=== PATIENT | male | born 1995 | race American Indian/Alaskan Native ===

== ENCOUNTER 2017-07-27 00:15 | Emergency (ER) | payer SELFPAY ==
[2017-07-27 00:45] VITALS: BP 118/60
[2017-07-27] MEDS ORDERED: MOTRIN PO ONE (03:48)
--- NOTE | 2017-07-27 03:57 | Emergency Department Report ---
- General Chief complaint: Skin Rash Stated complaint: BUMP ON GENITILES Time Seen by Provider: 07/27/17 03:48 Source: patient Mode of arrival: Ambulatory Limitations: No Limitations - History of Present Illness Initial comments: 22-year-old -[place] male comes to the emergency room complaining of a bump in his groin area. Patient reports he noticed a bump yesterday. He reports is very tender to touch. Fever chills no nausea vomiting. Denies any penile discharge or urinary discomfort. He's has no past medical history currently takes no medication and has no known drug allergies. MD complaint: abscess/boil -: days(s) (1) Tetanus Up to Date: yes Location: genitals Severity: moderate Severity scale (0 -10): 6 Quality: burning Consistency: intermittent Improves with: none Worsens with: palpation Context: none Associated symptoms: denies other symptoms Treatments Prior to Arrival: none - Related Data Previous Rx's Medication Instructions Recorded Last Taken Type Ibuprofen [Motrin 800 MG tab] 800 mg PO Q8H PRN #15 tablet 07/27/17 Unknown Rx Sulfamethoxazole/Trimethoprim 1 each PO BID #14 tablet 07/27/17 Unknown Rx [Bactrim Ds Tablet] Allergies Allergy/AdvReac Type Severity Reaction Status Date / Time lactose Allergy Unknown Verified 08/23/15 14:32 Abscess Boil HPI - HPI Chief Complaint: Skin Rash Stated Complaint: BUMP ON GENITILES Time Seen by Provider: 07/27/17 03:48 Home Medications: Previous Rx's Medication Instructions Recorded Last Taken Type Ibuprofen [Motrin 800 MG tab] 800 mg PO Q8H PRN #15 tablet 07/27/17 Unknown Rx Sulfamethoxazole/Trimethoprim 1 each PO BID #14 tablet 07/27/17 Unknown Rx [Bactrim Ds Tablet] Allergies/Adverse Reactions: Allergies Allergy/AdvReac Type Severity Reaction Status Date / Time lactose Allergy Unknown Verified 08/23/15 14:32 ED Review of Systems ROS: Stated complaint: BUMP ON GENITILES Other details as noted in HPI Constitutional: denies: chills, fever Eyes: denies: eye pain, eye discharge, vision change ENT: denies: ear pain, throat pain Respiratory: denies: cough, shortness of breath, wheezing Cardiovascular: denies: chest pain, palpitations Endocrine: no symptoms reported Gastrointestinal: denies: abdominal pain, nausea, diarrhea Genitourinary: other (bump on groin area). denies: urgency, dysuria, testicular pain, testicular mass Musculoskeletal: denies: back pain, joint swelling, arthralgia Skin: lesions (bump on groin). denies: rash Neurological: denies: headache, weakness, paresthesias Psychiatric: denies: anxiety, depression Hematological/Lymphatic: denies: easy bleeding, easy bruising ED Past Medical Hx - Past Medical History Previous Medical History?: No Additional medical history: Left knee injury 2013 - Surgical History Past Surgical History?: No - Social History Smoking Status: Current Every Day Smoker Substance Use Type: Alcohol, Marijuana - Medications Home Medications: Home Medications Medication Instructions Recorded Confirmed Last Taken Type Ibuprofen [Motrin 800 MG tab] 800 mg PO Q8H PRN #15 tablet 07/27/17 Unknown Rx Sulfamethoxazole/Trimethoprim 1 each PO BID #14 tablet 07/27/17 Unknown Rx [Bactrim Ds Tablet] ED Physical Exam - General Limitations: No Limitations General appearance: alert, in no apparent distress - Head Head exam: Present: atraumatic, normocephalic - Eye Eye exam: Present: normal appearance - ENT ENT exam: Present: mucous membranes moist - Neck Neck exam: Present: normal inspection - Respiratory Respiratory exam: Present: normal lung sounds bilaterally. Absent: respiratory distress - Cardiovascular Cardiovascular Exam: Present: regular rate, normal rhythm. Absent: systolic murmur, diastolic murmur, rubs, gallop - Rectal Rectal exam: Present: deferred - exam: Absent: testicular tenderness, urethral discharge External exam: Present: other (1.5 cm fluctuant abscess located on the right perineum. Very tender to palpate) - Extremities Exam Extremities exam: Present: normal inspection - Back Exam Back exam: Present: normal inspection - Neurological Exam Neurological exam: Present: alert, oriented X3 - Psychiatric Psychiatric exam: Present: normal affect, normal mood - Skin Skin exam: Present: other (1.5 cm fluctuant abscess located on the right perineum. Very tender to palpate) ED Course Vital Signs 07/27/17 00:42 Temperature 98.0 F Pulse Rate 75 Respiratory 17 Rate Blood Pressure 118/60 O2 Sat by Pulse 99 Oximetry - I & D Perineum Type of Procedure: Simple Site: perineum located mostly on the right Blade Size: 11 I & D Procedure: betadine prep, sterile drapes applied Progress: Patient tolerated procedure well ED Medical Decision Making - Medical Decision Making Patient's been evaluated by this provider fast track. Discussed the patient would need to do a suture and drain the abscess. Discussed the patient with discharge him on antibiotics and pain medication for him to follow-up with his primary care provider if he gets worse or no improvement. She verbalized understanding Critical care attestation.: If time is entered above; I have spent that time in minutes in the direct care of this critically ill patient, excluding procedure time. ED Disposition Clinical Impression: Simple abscess Disposition: DC-01 TO HOME OR SELFCARE Is pt being admited?: No Does the pt Need Aspirin: No Condition: Stable Instructions: Abscess (ED) Additional Instructions: Please take antibiotics as prescribed. Please take ibuprofen for pain. Follow- up with her primary care provider if symptoms persist or gets worse. Prescriptions: Ibuprofen [Motrin 800 MG tab] 800 mg PO Q8H PRN #15 tablet PRN Reason: Pain Sulfamethoxazole/Trimethoprim [Bactrim Ds Tablet] 1 each PO BID #14 tablet Referrals: JAX ARAYA MD [Primary Care Provider] - 3-5 Days Forms: Work/School Release Form(ED)
== END 2017-07-27 04:15 | disposition home or self-care (01) ==
LOC: ED 00:15
DX: L02.215 Cutaneous abscess of perineum (principal); F17.200 Nicotine dependence, unspecified, uncomplicated; F12.10 Cannabis abuse, uncomplicated; Z91.011 Allergy to milk products
CPT/HCPCS: 99282

== ENCOUNTER 2018-05-25 04:02 | Emergency (ER) | payer SELFPAY ==
[2018-05-25 04:37] VITALS: BP 136/91
[2018-05-25 05:14] LABS: Basophils % (Auto) 0.4 % (0.0-1.8); Eosinophils # (Auto) 0.1 K/mm3 (0.0-0.4); Eosinophils % (Auto) 2.1 % (0.0-4.3); Hematocrit 45.7 % (35.5-45.6); Hemoglobin 15.7 gm/dl (11.8-15.2); Lymphocytes # (Auto) 1.9 K/mm3 (1.2-5.4); Lymphocytes % (Auto) 29.5 % (13.4-35.0); Mean Corpuscular HGB Conc 34 % (32-34); Mean Corpuscular Volume 88 fl (84-94); Monocytes # (Auto) 0.7 K/mm3 (0.0-0.8); Monocytes % (Auto) 10.3 % (0.0-7.3); Platelet Count 330 K/mm3 (140-440); Red Blood Count 5.21 M/mm3 (3.65-5.03); Red Cell Distribution Width 13.6 % (13.2-15.2)
[2018-05-25] MEDS ORDERED: ALUM-MAG HYDROX-SIMETH 200-200-20MG/5ML PO ONE (05:35)
[2018-05-25] MEDS ORDERED: LIDOCAINE VISCOUS 2% PO ONE (05:35)
[2018-05-25 05:41] LABS: Alanine Aminotransferase 29 units/L (7-56); Albumin 4.4 g/dL (3.9-5); BUN/Creatinine Ratio 10; Blood Urea Nitrogen 7 mg/dL (9-20); Calcium 9.5 mg/dL (8.4-10.2); Hemolysis Index 8
--- NOTE | 2018-05-25 05:41 | Emergency Department Report ---
ED Abdominal Pain HPI - General Chief Complaint: Abdominal Pain Stated Complaint: ABD PAIN/NAUSEA/CONSTIPATION Time Seen by Provider: 05/25/18 05:25 Source: patient Mode of arrival: Ambulatory Limitations: No Limitations - History of Present Illness Initial Comments: 22-year-old -Citizen Of [place] male presents much department complaining of a week history of abdominal pain is sharp and burning in nature in the epigastric area and radiates up the chest has been worse the last 2 days associated with nausea. He is has experienced one episode of vomiting. Stated he didn't constipated and bloated for the last 1 week, has not quite been resolved with Pepto-Bismol. States it is hard time passing bowel movements. He denies any fever, chills, sweats, hemoptysis, hematemesis, hematochezia. Denies any trauma. Reports no dysuria. States that having any pre-existing abdomen abdominal history.(1) MD Complaint: abdominal pain Radiation: none Migration to: no migration Severity: mild, moderate Consistency: constant Improves With: nothing Worsens With: nothing Associated Symptoms: vomiting, constipation. denies: dysuria, hematemesis, hematochezia, hematuria, anorexia - Related Data Previous Rx's Medication Instructions Recorded Last Taken Type Ibuprofen [Motrin 800 MG tab] 800 mg PO Q8H PRN #15 tablet 07/27/17 Unknown Rx Sulfamethoxazole/Trimethoprim 1 each PO BID #14 tablet 07/27/17 Unknown Rx [Bactrim Ds Tablet] Hyoscyamine Subl [Levsin Sl] 0.125 mg SL Q4HR PRN #16 tablet 05/25/18 Unknown Rx Lactulose [Cephulac] 20 gm PO Q6HR #240 ml 05/25/18 Unknown Rx Omeprazole 20 mg PO DAILY #14 tab 05/25/18 Unknown Rx Allergies Allergy/AdvReac Type Severity Reaction Status Date / Time lactose Allergy Unknown Verified 08/23/15 14:32 ED Review of Systems ROS: Stated complaint: ABD PAIN/NAUSEA/CONSTIPATION Other details as noted in HPI Constitutional: denies: chills, fever Eyes: denies: eye pain, eye discharge, vision change ENT: denies: ear pain, throat pain Respiratory: denies: cough, shortness of breath, wheezing Cardiovascular: denies: chest pain, palpitations Endocrine: no symptoms reported Gastrointestinal: nausea, vomiting, constipation. denies: abdominal pain, diarrhea Genitourinary: denies: urgency, dysuria Musculoskeletal: denies: back pain, joint swelling, arthralgia Skin: denies: rash, lesions Neurological: denies: headache, weakness, paresthesias Psychiatric: denies: anxiety, depression Hematological/Lymphatic: denies: easy bleeding, easy bruising ED Past Medical Hx - Past Medical History Previous Medical History?: Yes Additional medical history: Left knee injury 2013. "stomach issues" - Surgical History Past Surgical History?: No - Social History Smoking Status: Current Every Day Smoker Substance Use Type: Marijuana - Medications Home Medications: Home Medications Medication Instructions Recorded Confirmed Last Taken Type Ibuprofen [Motrin 800 MG tab] 800 mg PO Q8H PRN #15 tablet 07/27/17 Unknown Rx Sulfamethoxazole/Trimethoprim 1 each PO BID #14 tablet 07/27/17 Unknown Rx [Bactrim Ds Tablet] Hyoscyamine Subl [Levsin Sl] 0.125 mg SL Q4HR PRN #16 tablet 05/25/18 Unknown Rx Lactulose [Cephulac] 20 gm PO Q6HR #240 ml 05/25/18 Unknown Rx Omeprazole 20 mg PO DAILY #14 tab. 05/25/18 Unknown Rx ED Physical Exam - General Limitations: No Limitations General appearance: alert, in no apparent distress - Head Head exam: Present: atraumatic, normocephalic - Eye Eye exam: Present: normal appearance, PERRL, EOMI Pupils: Present: normal accommodation - ENT ENT exam: Present: mucous membranes moist - Neck Neck exam: Present: normal inspection - Respiratory Respiratory exam: Present: normal lung sounds bilaterally. Absent: respiratory distress - Cardiovascular Cardiovascular Exam: Present: regular rate, normal rhythm. Absent: systolic murmur, diastolic murmur, rubs, gallop - GI/Abdominal GI/Abdominal exam: Present: soft, normal bowel sounds, other (decreased tympany. No colon sign, no Holcomb Capps, tenderness or [place] or McBurney's. No Rovsing). Absent: guarding, rebound, rigid, pulsatile mass, hernia - Rectal Rectal exam: Present: deferred - Extremities Exam Extremities exam: Present: normal inspection - Back Exam Back exam: Present: normal inspection - Neurological Exam Neurological exam: Present: alert, oriented X3 - Psychiatric Psychiatric exam: Present: normal affect, normal mood - Skin Skin exam: Present: warm, dry, intact, normal color. Absent: rash ED Course Vital Signs 05/25/18 04:33 Temperature 97.8 F Pulse Rate 63 Respiratory 18 Rate Blood Pressure 136/91 O2 Sat by Pulse 100 Oximetry ED Medical Decision Making - Lab Data Result diagrams: 05/25/18 04:59 05/25/18 04:59 Critical care attestation.: If time is entered above; I have spent that time in minutes in the direct care of this critically ill patient, excluding procedure time. ED Disposition Clinical Impression: Abdominal pain, Constipation Disposition: - TO HOME OR SELFCARE Is pt being admited?: No Does the pt Need Aspirin: No Condition: Stable Instructions: Acute Abdominal Pain (ED), Abdominal Pain (ED) Prescriptions: Hyoscyamine Subl [Levsin Sl] 0.125 mg SL Q4HR PRN #16 tablet PRN Reason: Spasms Lactulose [Cephulac] 20 gm PO Q6HR #240 ml Omeprazole 20 mg PO DAILY #14 tab. Referrals: [facility] [Provider Group] - 3-5 Days 1: Note no chest pain, no cough, no sputum production. No headache or presyncope. Denies any current past medical history surgical history denies any history of any hernias. No testicular pain, no dysuria. Advil does help the pain. Pain does get worse with certain meals answered certain positions and palpation.
[2018-05-25 05:42] LABS: Bilirubin,Urine NEG (Negative); Blood,Urine NEG (Negative); Color,Urine Yellow (Yellow); Mucus,Urine FEW /HPF; Protein,Urine <15 mg/dL mg/dL (Negative); Urobilinogen,Urine < 2.0 mg/dL (<2.0)
[2018-05-25] MEDS ORDERED: PEPCID PO ONE (05:55)
== END 2018-05-25 06:26 | disposition home or self-care (01) ==
LOC: ED 04:02
DX: K59.00 Constipation, unspecified (principal); F17.200 Nicotine dependence, unspecified, uncomplicated; F12.10 Cannabis abuse, uncomplicated; Z91.011 Allergy to milk products
CPT/HCPCS: 36415; 80053; 81001; 83690; 85025

== ENCOUNTER 2018-05-26 18:22 | Emergency (ER) | payer SELFPAY ==
[2018-05-26] MEDS ORDERED: NACL 0.9% 1000 ML 1,000 ML IV ONE (18:29)
[2018-05-26 19:29] LABS: Basophils # (Auto) 0.1 K/mm3 (0.0-0.1); Basophils % (Auto) 0.8 % (0.0-1.8); Eosinophils # (Auto) 0.1 K/mm3 (0.0-0.4); Eosinophils % (Auto) 1.6 % (0.0-4.3); Hematocrit 45.5 % (35.5-45.6); Hemoglobin 15.1 gm/dl (11.8-15.2); Lymphocytes # (Auto) 2.7 K/mm3 (1.2-5.4); Lymphocytes % (Auto) 34.3 % (13.4-35.0); Mean Corpuscular HGB Conc 33 % (32-34); Mean Corpuscular Volume 88 fl (84-94); Monocytes # (Auto) 0.7 K/mm3 (0.0-0.8); Monocytes % (Auto) 8.9 % (0.0-7.3); Platelet Count 309 K/mm3 (140-440); Red Blood Count 5.18 M/mm3 (3.65-5.03); Red Cell Distribution Width 13.5 % (13.2-15.2)
[2018-05-26 19:50] LABS: Amorphous Crystals,Urine 1+; Bacteria,Urine 2+ /HPF (Negative); Bilirubin,Urine NEG (Negative); Blood,Urine NEG (Negative); Color,Urine Yellow (Yellow); Mucus,Urine FEW /HPF; Protein,Urine <15 mg/dL mg/dL (Negative); Urobilinogen,Urine < 2.0 mg/dL (<2.0)
[2018-05-26 19:56] LABS: Alanine Aminotransferase 25 units/L (7-56); Albumin 4.3 g/dL (3.9-5); BUN/Creatinine Ratio 17; Blood Urea Nitrogen 12 mg/dL (9-20); Calcium 9.4 mg/dL (8.4-10.2); Hemolysis Index 5
[2018-05-26] MEDS ORDERED: ZOFRAN ODT PO STA (20:44)
[2018-05-26] MEDS ORDERED: PEPCID PO ONE (20:44)
[2018-05-26] MEDS ORDERED: CARAFATE PO ONE (20:44)
[2018-05-26] MEDS ORDERED: ALUM-MAG HYDROX-SIMETH 200-200-20MG/5ML PO ONE (20:44)
[2018-05-26] MEDS ORDERED: BENTYL PO ONE (20:44)
[2018-05-26 20:50] VITALS: BP 142/78
--- NOTE | 2018-05-26 20:51 | Emergency Department Report ---
ED General Adult HPI - General Chief complaint: Abdominal Pain Stated complaint: STOMACH PAIN Time Seen by Provider: 05/26/18 20:28 Source: patient, RN notes reviewed, old records reviewed Mode of arrival: Ambulatory Limitations: No Limitations - History of Present Illness Initial comments: This is a 22-year-old gentleman who was not known to this provider previously. He reports no chronic medical conditions. He reports no history of abdominal surgeries. He does not have a local primary care doctor. He presents to the ER with a complaint of nontraumatic bilateral flank and upper abdominal pain. This pain is achy, and crampy, and does not radiate anywhere. He does not have exacerbating or relieving factors. This pain is intermittent over the past 3 years. It does not change when he takes a hot bath or hot shower. He describes 3 episodes of nonbloody, nonbilious emesis. He denies testicular pain, headache, neck pain, chest pain, lower abdominal pain, irritative, obstructive urinary symptoms. He reports no change in his symptoms when he takes a hot bath or hot shower. He denies recent travel, recent surgery, recent hospitalization, leg pain, leg swelling. He reports defecating earlier on today. His last episode of emesis was approximately 1 hour prior to my evaluation. The patient does endorse intermittent consumption of cannabis, as well as tobacco. -: Gradual, month(s), year(s) Location: abdomen Radiation: non-radiation Quality: aching Consistency: intermittent Improves with: none Worsens with: none Associated Symptoms: loss of appetite, malaise, nausea/vomiting. denies: confusion, chest pain, cough, diaphoresis, fever/chills, headaches, rash, seizure, shortness of breath, syncope, weakness - Related Data Previous Rx's Medication Instructions Recorded Last Taken Type Ibuprofen [Motrin 800 MG tab] 800 mg PO Q8H PRN #15 tablet 07/27/17 Unknown Rx Sulfamethoxazole/Trimethoprim 1 each PO BID #14 tablet 07/27/17 Unknown Rx [Bactrim Ds Tablet] Omeprazole 20 mg PO DAILY #14 tab. 05/25/18 Unknown Rx Acetaminophen [Tylenol Arthritis] 650 mg PO Q6HR PRN #30 tablet.er 05/26/18 Unknown Rx Dicyclomine [Bentyl] 10 mg PO QID PRN #20 capsule 05/26/18 Unknown Rx Ondansetron [Zofran Odt] 4 mg PO Q8HR PRN #20 tab.rapdis 05/26/18 Unknown Rx Allergies Allergy/AdvReac Type Severity Reaction Status Date / Time lactose Allergy Unknown Verified 08/23/15 14:32 ED Review of Systems ROS: Stated complaint: STOMACH PAIN Other details as noted in HPI Constitutional: denies: fever, malaise Eyes: denies: vision change ENT: denies: epistaxis Respiratory: denies: cough Cardiovascular: denies: chest pain Gastrointestinal: abdominal pain, nausea, vomiting. denies: hematemesis, melena, hematochezia Genitourinary: denies: urgency, dysuria, frequency, hematuria, testicular pain, testicular mass Musculoskeletal: denies: arthralgia, myalgia Skin: denies: lesions Neurological: denies: weakness Psychiatric: anxiety ED Past Medical Hx - Past Medical History Previous Medical History?: No Additional medical history: Left knee injury 2013. "stomach issues" - Surgical History Past Surgical History?: No - Social History Smoking Status: Never Smoker Substance Use Type: None - Medications Home Medications: Home Medications Medication Instructions Recorded Confirmed Last Taken Type Ibuprofen [Motrin 800 MG tab] 800 mg PO Q8H PRN #15 tablet 07/27/17 Unknown Rx Sulfamethoxazole/Trimethoprim 1 each PO BID #14 tablet 07/27/17 Unknown Rx [Bactrim Ds Tablet] Omeprazole 20 mg PO DAILY #14 tab.rap. 05/25/18 Unknown Rx Acetaminophen [Tylenol Arthritis] 650 mg PO Q6HR PRN #30 tablet.er 05/26/18 Unknown Rx Dicyclomine [Bentyl] 10 mg PO QID PRN #20 capsule 05/26/18 Unknown Rx Ondansetron [Zofran Odt] 4 mg PO Q8HR PRN #20 tab.rapdis 05/26/18 Unknown Rx ED Physical Exam - General Limitations: No Limitations General appearance: alert, anxious - Head Head exam: Present: atraumatic, normocephalic - Eye Eye exam: Present: normal appearance, EOMI - ENT ENT exam: Present: normal exam, normal orophraynx, mucous membranes moist, nor mal external ear exam - Neck Neck exam: Present: normal inspection, full ROM. Absent: tenderness, meningismus - Respiratory Respiratory exam: Present: normal lung sounds bilaterally. Absent: respiratory distress, wheezes, rales, rhonchi, stridor - Cardiovascular Cardiovascular Exam: Present: regular rate, normal rhythm, normal heart sounds. Absent: bradycardia, tachycardia, irregular rhythm, systolic murmur, diastolic murmur, rubs, gallop - GI/Abdominal GI/Abdominal exam: Present: soft, normal bowel sounds, other (is no right upper quadrant tenderness. There is no right lower quadrant tenderness. There is no rebound, guarding or peritoneal signs.). Absent: distended, tenderness, guarding, rebound, rigid, pulsatile mass - Rectal Rectal exam: Present: deferred - Extremities Exam Extremities exam: Present: normal inspection, full ROM, other (2+ pulses noted in the bilateral upper, lower extremities. Compartments soft. No long bony tenderness. The pelvis is stable.). Absent: pedal edema, joint swelling, calf tenderness - Back Exam Back exam: Present: normal inspection, full ROM. Absent: tenderness, CVA tenderness (R), paraspinal tenderness, vertebral tenderness - Neurological Exam Neurological exam: Present: alert, oriented X3, CN II-XII intact, normal gait, other (Extraocular movements intact. Tongue midline. No facial droop. Facial sensation intact to light touch in the V1, V2, V3 distribution bilaterally. 5 and 5 strength in 4 extremities.. Sensation is intact to light touch in 4 extremities.). Absent: motor sensory deficit - Psychiatric Psychiatric exam: Present: anxious - Skin Skin exam: Present: warm, dry, intact, normal color. Absent: rash ED Course Vital Signs 05/26/18 05/26/18 18:25 20:48 Temperature 98.3 F 98.5 F Pulse Rate 77 66 Respiratory 18 19 Rate Blood Pressure 171/96 Blood Pressure 142/78 [Right] O2 Sat by Pulse 99 98 Oximetry - Reevaluation(s) Reevaluation #1: 05/26/18 20:49 Differential diagnosis, including but not limited to: GERD, gastritis, hiatal hernia, cannabinoid hyperemesis syndrome, muscular skeletal pain, anxiety, i rritable bowel syndrome, inflammatory bowel syndrome Assessment and plan: 22-year-old gentleman who recreationally consumes tobacco and cannabis with intermittent bilateral flank pain. This pain by his history is present intermittently over the course of years. The patient is afebrile with reassuring vital signs with the exception of elevated blood pressure. Please reference the [employer] clinical policy on hypertension which is not acutely symptomatic or decompensated. The patient reports no DVT or pulmonary embolus risk factors, he is low risk by well's criteria, and he is PERC negative. With distraction, his abdomen is completely soft, benign, with no rebound, guarding or peritoneal signs. The patient has equal pulses in the upper, lower extremities bilaterally, and there is no CVA tenderness. Limited transabdominal ultrasound was performed, with views in the right upper quadrant, subxiphoid, left upper quadrant, and suprapubic region. While this examination was being performed, the patient had no tenderness, rebound or guarding. The aforementioned views were unremarkable. The patient is counseled to discontinue consumption of tobacco, marijuana, we will adjust the medications that were recently prescribed for him, we also described diet and lifestyle modifications with the patient. The patient does not appear to have an emergent medical condition at this time, based off of the history and physical, it is my pain at the patient does not require advanced imaging. The patient is medically suitable to follow up with an outpatient primary care doctor, and/or pulmonology technician. ED Medical Decision Making - Lab Data Result diagrams: 05/26/18 19:06 05/26/18 19:06 Vital Signs 05/26/18 05/26/18 18:25 20:48 Temperature 98.3 F 98.5 F Pulse Rate 77 66 Respiratory 18 19 Rate Blood Pressure 171/96 Blood Pressure 142/78 [Right] O2 Sat by Pulse 99 98 Oximetry Lab Results 05/26/18 05/26/18 05/26/18 Range/Units 19:06 19:06 19:14 WBC 8.0 (4.5-11.0) K/mm3 RBC 5.18 H (3.65-5.03) M/mm3 Hgb 15.1 (11.8-15.2) gm/dl Hct 45.5 (35.5-45.6) % MCV 88 (84-94) fl MCH 29 (28-32) pg MCHC 33 (32-34) % RDW 13.5 (13.2-15.2) % Plt Count 309 (140-440) K/mm3 Lymph % (Auto) 34.3 (13.4-35.0) % Nolan % (Auto) 8.9 H (0.0-7.3) % Eos % (Auto) 1.6 (0.0-4.3) % Baso % (Auto) 0.8 (0.0-1.8) % Lymph # 2.7 (1.2-5.4) K/mm3 Nolan # 0.7 (0.0-0.8) K/mm3 Eos # 0.1 (0.0-0.4) K/mm3 Baso # 0.1 (0.0-0.1) K/mm3 Seg Neutrophils % 54.4 (40.0-70.0) % Seg Neutrophils # 4.3 (1.8-7.7) K/mm3 Sodium 142 (137-145) mmol/L Potassium 3.8 (3.6-5.0) mmol/L Chloride 103.4 (98-107) mmol/L Carbon Dioxide 27 (22-30) mmol/L Anion Gap 15 mmol/L BUN 12 (9-20) mg/dL Creatinine 0.7 L (0.8-1.5) mg/dL Estimated GFR > 60 ml/min BUN/Creatinine Ratio 17 % Glucose 85 (75-100) mg/dL Calcium 9.4 (8.4-10.2) mg/dL Total Bilirubin 0.40 (0.1-1.2) mg/dL AST 18 (5-40) units/L ALT 25 (7-56) units/L Alkaline Phosphatase 77 (35-129) units/L Total Protein 8.0 (6.3-8.2) g/dL Albumin 4.3 (3.9-5) g/dL Albumin/Globulin Ratio 1.2 % Urine Color Yellow (Yellow) Urine Turbidity Cloudy (Clear) Urine pH 7.0 (5.0-7.0) Ur Specific Archer 1.018 (1.003-1.030) Urine Protein <15 mg/dl (Negative) mg/dL Urine Glucose (UA) Neg (Negative) mg/dL Urine Ketones Neg (Negative) mg/dL Urine Blood Neg (Negative) Urine Nitrite Neg (Negative) Urine Bilirubin Neg (Negative) Urine Urobilinogen < 2.0 (<2.0) mg/dL Ur Leukocyte Esterase Neg (Negative) Urine WBC (Auto) 2.0 (0.0-6.0) /HPF Urine RBC (Auto) 5.0 (0.0-6.0) /HPF Urine Bacteria (Auto) 2+ (Negative) /HPF Amorphous Crystals 1+ Urine Mucus Few /HPF Urinalysis is reviewed and appreciated, the patient endorses no urinary symptoms. There is no epigastric or upper abdominal tenderness, therefore clinically doubt pancreatitis. Critical care attestation.: If time is entered above; I have spent that time in minutes in the direct care of this critically ill patient, excluding procedure time. ED Disposition Clinical Impression: Abdominal pain Disposition: DC-01 TO HOME OR SELFCARE Is pt being admited?: No Does the pt Need Aspirin: No Condition: Good Additional Instructions: I recommended the patient discontinue consumption of tobacco, and marijuana. Both of these substances may be contributing to abdominal pain. I recommend the patient modified diet, and increased consumption of fruits, fibers, vegetables, lean meat, and avoid consumption of heavy, spicy food, avoid consumption of fried food and simple carbohydrates. I recommend the patient increased water consumption to 6 cups of water per day, and make his best efforts to not consume soda, carbonated beverages, coffee, or energy drinks. Patient may take the medications as prescribed, and should expect symptoms to last intermittently over the next few weeks to months. The patient's condition does not appear to represent a dangerous or life-thre atening condition, and he should follow up with outpatient primary care doctor or gastroenterology specialist within the next 4-6 weeks. Return to the ER right away with new pain, worsening pain, migration of pain, projectile vomiting, change in mental status, confusion, inability to tolerate liquid feeds, new, worsening or different symptoms. Referrals: [facility] [Provider Group] - 3-5 Days [facility] [Provider Group] - 3-5 Days
== END 2018-05-26 21:55 | disposition home or self-care (01) ==
LOC: ED 18:22
DX: R10.10 Upper abdominal pain, unspecified (principal); R11.2 Nausea with vomiting, unspecified; F41.9 Anxiety disorder, unspecified; F17.200 Nicotine dependence, unspecified, uncomplicated; F12.10 Cannabis abuse, uncomplicated; Z91.011 Allergy to milk products
CPT/HCPCS: 36415; 80053; 81001; 85025; 99283; Q0162

== ENCOUNTER 2020-11-20 19:43 | Emergency (ER) | payer SELFPAY ==
[2020-11-20 21:36] VITALS: BP 127/74
[2020-11-21] MEDS ORDERED: traMADol 50 MG TAB PO ONE (00:53)
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
== END 2020-11-21 02:35 | disposition home or self-care (01) ==
LOC: ED 19:43
DX: M54.2 Cervicalgia (principal); M25.561 Pain in right knee; Z79.899 Other long term (current) drug therapy; Z88.8 Allergy status to other drugs, medicaments and biological substances; Z98.890 Other specified postprocedural states; V49.88XA Car occupant (driver) (passenger) injured in other specified transport accidents, initial encounter; Y92.410 Unspecified street and highway as the place of occurrence of the external cause; Y93.89 Activity, other specified; Y99.8 Other external cause status